=== PATIENT | male | born 1950 | race African-American/Black ===

== ENCOUNTER 2018-10-09 22:33 | Inpatient (IN) ==
[2018-10-09] MEDS ORDERED: M.V.I.-12 10 ML, FOLIC ACID 1 MG, MAGNESIUM SULFATE 1 GM, THIAMINE 100 MG in NS 1,000 ML IV ONE (22:43)
[2018-10-09] MEDS ORDERED: G.I. COCKTAIL PO ONE (22:48)
[2018-10-09 23:28] LABS: BASO# 0.03 X1000 (0.0-0.2); BASO% 0.4 % (0.0-0.8); EOS# 0.09 X1000 (0.0-0.7); EOS% 1.3 % (0.0-10.0); HEMATOCRIT 33.7 % (42.0-52.0); HEMOGLOBIN 11.7 g/dL (14.0-18.0); IMM GRAN# 0.02 X1000 (0.0-0.04); IMM GRAN% 0.3 % (0.0-0.5); LYMPH% 44.5 % (20.5-51.1); MCH 30.5 PG (27-31); MCHC 34.7 g/dL (33-37); MCV 87.8 FL (81-99); MONO# 0.99 X1000 (0.11-0.59); MONO% 13.8 % (1.7-9.3); MPV 9.1 FL (7.4-10.4); NEUT# 2.86 X1000 (1.4-6.5); NEUT% 39.7 % (42.2-75.2); PLT 261 X1000 (130-400); RBC 3.84 XMIL (4.7-6.1); RDW 13.8 % (11.5-14.5); WBC 7.19 X1000 (4.8-10.8)
[2018-10-09 23:31] LABS: AGAP 20; ALBUMIN 4.2 g/dL (3.5-5.0); ALKALINE PHOSPHATASE 104 U/L (32-122); BUN 6 mg/dL (8-22); CALCIUM 7.5 mg/dL (8.8-10.2); CHLORIDE 91 mmol/L (98-107); COSMO 264; CREATININE 0.7 mg/dL (0.7-1.2); ESTIMATED GFR > 60; GLUCOSE 161 mg/dL (70-104); GOT 42 U/L (10-34); GPT 17 U/L (10-44); LIPASE 59 U/L (13-60); POTASSIUM 3.1 mmol/L (3.5-5.1); SODIUM 131 mmol/L (136-145); TCO2 19 mmol/L (25-35); TOTAL PROTEIN 7.2 g/dL (6.3-8.3)
[2018-10-09 23:32] LABS: CK PROFILE 395 U/L (24-204)
[2018-10-09 23:46] LABS: CK INDEX 1.2 (0.0-2.5); CK-MB 4.81 ng/mL (0.0-5.0)
[2018-10-10 01:24] LABS: UR AMPHETAMINES QUAL NONE DETECTED (NONE DETECT); UR BARBITUATES QUAL NONE DETECTED (NONE DETECT); UR BENZODIAZEPIN QUAL NONE DETECTED (NONE DETECT); UR CANNABINOIDS QUAL NONE DETECTED (NONE DETECT); UR COCAINE QUAL NONE DETECTED (NONE DETECT); UR METHADONE QUAL NONE DETECTED (NONE DETECT); UR METHAMPHETAMINE QUAL NONE DETECTED (NONE DETECT); UR OPIATES QUAL NONE DETECTED (NONE DETECT); UR OXYCODONE QUAL NONE DETECTED (NONE DETECT); UR PCP QUAL NONE DETECTED (NONE DETECT); UR PROPOXYPHENE QUAL NONE DETECTED (NONE DETECT); UR TCA QUAL NONE DETECTED (NONE DETECT)
--- NOTE | 2018-10-10 01:53 | EKG Report ---
Test Performed on : 10/09/2018 10:58:08 PM Test Reason : chest pain Blood Pressure : / mmHG Vent. Rate : 088 BPM Atrial Rate : 088 BPM P-R Int : 154 ms QRS Dur : 072 ms QT Int : 416 ms P-R-T Axes : 083 074 073 degrees QTc Int : 503 ms Normal sinus rhythm. Prolonged QT Abnormal ECG No previous ECGs available Unconfirmed Result
[2018-10-10] MEDS ORDERED: NORCO-5 PO ONE (03:11)
[2018-10-10] MEDS ORDERED: DILAUDID IV ONE (04:26)
[2018-10-10] MEDS ORDERED: NS 1,000 ML IV ONE (05:30)
[2018-10-10] MEDS ORDERED: DILAUDID IM PRN (05:30)
--- NOTE | 2018-10-10 05:30 | PROVIDER DOCUMENTATION ---
This chart was entered by Tina Smith Scribe, acting as scribe for Jie Narayanan MD. [id number] Abuse/Overdose - General Chief Complaint: Fall Stated Complaint: fall Time Seen by Provider: 10/09/18 22:43 Source: patient Allergies/Adverse Reactions: Allergies Allergy/AdvReac Type Severity Reaction Status Date / Time morphine AdvReac DIZZINESS Verified 06/12/17 15:49 Home Medications: Home Medication List Medication Instructions Recorded Confirmed Last Taken Type Cyclobenzaprine [Flexeril] 10 mg PO TID #20 tab 06/12/17 Unknown Rx Ibuprofen [Motrin] 800 mg PO Q8H PRN PRN #20 tab 06/12/17 Unknown Rx Omeprazole 20 mg PO DAILY #20 tablet. 06/12/17 Unknown Rx - History of Present Illness-Drug/Alcohol Nature of Presenting Problem: Pt presents to ED w/ ETOH on board. Was in a standing position and fell down at home. Pt sts that he has been drinking all day. He has slurred speech and had soiled his pants at time of exam. Cannot accurately assess pt. at time arrival This episode of drinking or use began:: just prior to arrival Severity: reports: mild Situational problems related to:: reports: other Psychiatric Complaints: reports: denies symptoms Associated Symptoms: reports: other (slurred). denies: vomiting Any injuries associated with this episode of intoxication?: No Similar Symptoms Previously?: No Recently seen or treated by another doctor?: No - Alcohol Abuse Usually drinks:: unknown Other alcohols?: reports: N/A Review of Systems - Adult - REVIEW OF SYSTEMS - ADULT Constitutional: denies: fever, fatique Ears, Nose, Mouth & Throat: reports: no symptoms reported Cardiovascular: reports: chest pain Respiratory: reports: pleurisy Gastrointestinal: reports: no symptoms reported Genitourinary: reports: no symptoms reported Musculoskeletal: reports: no symptoms reported Integumentary: reports: no symptoms reported Neurological: reports: ataxia, headache/migraines Psychiatric: reports: no symptoms reported Endocrine: reports: no symptoms reported Hematologic/Lymphatic: reports: no symptoms reported Allergic/Immunologic: reports: no symptoms reported Past History - Adult - PAST MEDICAL HISTORY-ADULT Review of Records: reports: Nursing Assessment Review Major Childhood Illnesses: reports: denies history Cardiovascular: reports: denies history Respiratory: reports: denies history Gastrointestinal: reports: denies history Obstetrical/Gynecological: reports: denies history Genitourinary: reports: denies history Musculoskeletal: reports: denies history Neurological: reports: denies history Endocrine/Immune: reports: denies history Other Conditions: reports: denies history - PRIOR SURGERIES/PROCEDURES Surgical/Procedure History: reports: none - IMMUNIZATION STATUS Childhood Immunizations: See Nurse Assessment Flu Vaccine: See Nurse Assessment - FAMILY HISTORY Family History: reviewed, not pertinent Physical Exam-General - PHYSICAL EXAM-ADULT Initial Vital Signs Reviewed: Yes - CONSTITUTIONAL General Appearance: alert, other (intoxicated) - EYES Eyes: PERRL/EOMI - HEAD, EARS, NOSE, MOUTH & THROAT HENMT: normocephalic/atraumatic - NECK Neck: non-tender, supple - RESPIRATORY Respiratory: decreased rate (decreased breath sound on the right lung), other - CARDIOVASCULAR Cardiovascular: regular rate, rhythm, no edema, no gallop - GASTROINTESTINAL (ABDOMEN) Abdominal Exam: non tender, soft - LYMPHATIC Lymphatic: no adenopathy - MUSCULOSKELETAL Back Exam: no CVA tenderness, no vertebral tenderness Extremity: non-tender, no pedal edema - SKIN Integumentary: warm/dry - NEUROLOGIC Neurologic: grossly normal, no motor/sensory deficits - PSYCHIATRIC Psych/Mental Status: normal mood/affect Progress - PLAN OF CARE/RESULTS Progress/Plan/Lab Results: Vital Signs - 8 hr 10/09/18 22:43 10/10/18 00:00 10/10/18 04:53 Temperature 98.5 F Pulse Rate 84 77 74 Respiratory Rate 20 18 21 Blood Pressure 150/81 123/65 172/98 O2 Sat by Pulse Oximetry 94 L 96 Laboratory Results - last 24 hr 10/09/18 10/09/18 10/09/18 23:01 23:01 23:01 WBC 7.19 RBC 3.84 L Hgb 11.7 L Hct 33.7 L MCV 87.8 MCH 30.5 MCHC 34.7 RDW Std Deviation 13.8 Plt Count 261 MPV 9.1 Immature Gran % (Auto) 0.3 Neut % (Auto) 39.7 L Lymph % (Auto) 44.5 Hughes % (Auto) 13.8 H Eos % (Auto) 1.3 Baso % (Auto) 0.4 Immature Gran # (Auto) 0.02 Neut # (Auto) 2.86 Lymph # (Auto) 3.20 Hughes # (Auto) 0.99 H Eos # (Auto) 0.09 Baso # (Auto) 0.03 Sodium 131 L Potassium 3.1 L Chloride 91 L Carbon Dioxide 19 L Anion Gap 20 BUN 6 L Creatinine 0.7 Estimated GFR/1.73 m2 > 60 BUN/Creatinine Ratio 9 Glucose 161 H Calculated Osmolality 264 Calcium 7.5 L Total Bilirubin 0.20 AST 42 H ALT 17 Alkaline Phosphatase 104 Creatine Kinase 395 H Creatine Kinase Index 1.2 CK-MB (CK-2) 4.81 Troponin T < 0.010 Total Protein 7.2 Albumin 4.2 Globulin 3.0 Albumin/Globulin Ratio 1.0 Lipase 59 Urine Opiates Screen Ur Oxycodone Screen Urine Methadone Screen U Propoxyphene Qual Ur Barbituates Screen Ur Tricyclics Screen Ur Phencyclidine Scrn Ur Amphetamines Screen U Methamphetamines Scrn U Benzodiazepines Scrn Urine Cocaine Screen U Cannabinoids Screen Plasma/Serum Ethyl Alc 10/09/18 10/10/18 23:01 01:00 WBC RBC Hgb Hct MCV MCH MCHC RDW Std Deviation Plt Count MPV Immature Gran % (Auto) Neut % (Auto) Lymph % (Auto) Hughes % (Auto) Eos % (Auto) Baso % (Auto) Immature Gran # (Auto) Neut # (Auto) Lymph # (Auto) Hughes # (Auto) Eos # (Auto) Baso # (Auto) Sodium Potassium Chloride Carbon Dioxide Anion Gap BUN Creatinine Estimated GFR/1.73 m2 BUN/Creatinine Ratio Glucose Calculated Osmolality Calcium Total Bilirubin AST ALT Alkaline Phosphatase Creatine Kinase Creatine Kinase Index CK-MB (CK-2) Troponin T Total Protein Albumin Globulin Albumin/Globulin Ratio Lipase Urine Opiates Screen NONE DETECTED Ur Oxycodone Screen NONE DETECTED Urine Methadone Screen NONE DETECTED U Propoxyphene Qual NONE DETECTED Ur Barbituates Screen NONE DETECTED Ur Tricyclics Screen NONE DETECTED Ur Phencyclidine Scrn NONE DETECTED Ur Amphetamines Screen NONE DETECTED U Methamphetamines Scrn NONE DETECTED U Benzodiazepines Scrn NONE DETECTED Urine Cocaine Screen NONE DETECTED U Cannabinoids Screen NONE DETECTED Plasma/Serum Ethyl Alc 338 H Orders Category Date Time Status CHEST-PORTABLE [RAD] Stat Exams 10/10/18 04:[address] HEAD W/O CONTRAST [CT] Stat Exams 10/09/18 22:50 Taken RIBS UNILAT W/PA CHEST RIGHT [RAD] Stat Exams 10/10/18 03:11 Taken ALCOHOL BLOOD Stat Lab 10/09/18 23:01 Completed CBC WITH DIFF [HEME] Stat Lab 10/09/18 23:01 Completed CK PROFILE [SP CHEM] Stat Lab 10/09/18 23:01 Completed COMPREHENSIVE METABOLIC PANEL [CHEM] Stat Lab 10/09/18 23:01 Completed LIPASE [CHEM] Stat Lab 10/09/18 23:01 Completed TROPONIN T Stat Lab 10/09/18 23:01 Completed URINE DRUG SCREEN PL Stat Lab 10/09/18 23:04 Completed Hydrocodone/APAP 5 mg/325 mg [Kemmerer-5] Med 10/10/18 03:11 Discontinued 1 each PO NOW ONE Hydromorphone [Dilaudid] Med 10/10/18 04:26 Discontinued 1 mg IV NOW ONE Lido/Odonnell Alk/Al&mg Hydrox [G.i. Cocktail] Med 10/09/18 22:48 Discontinued 30 ml PO NOW ONE Mvi [M.v.i.-12] 10 ml Med 10/09/18 22:43 Discontinued Folic Acid 1 mg Magnesium Sulfate 1 gm Thiamine 100 mg 0.9% Sodium Chloride Inj [Ns] 1,000 ml IV NOW Chest Tube Tray Stat Oth 10/10/18 04:35 Active EKG [EKG] Stat Ther 10/09/18 22:48 Draft Result Diagrams: 10/09/18 23:01 10/09/18 23:01 - EKG 1 Time of EKG reading by physician:: 22:58 EKG Read and Signed by:: Jie Narayanan EKG Interpretation (*Must complete 3 of following elements*): Abnormal (normal sinus rhythm, Prolonged QT, Abnormal ECG) Rate: 86 Rhythm: normal sinus - XRAY 1 XRAY: Right XRAY Study: Chest Impression: See EMR Report (pneumothorax) 2 XRAY: Right XRAY Study: Chest (chest tube in good position, lungs expanded) - CT/MRI 1 CT Study: Head Impression: Normal (no accute intracranial hemorrhage or process, Age related cerbral volume loss, Bilateral white matter disease, likely ischemic microvascular in nature.) - CONSULTS/PCP/HOSPITALIST Notification #1 *Consult/PCP/Hospitalist*: Mckenzie Time Discussed: 05:02 Consult Disposition: Admit Departure - Departure Date of Disposition Decision: 10/10/18 Time of Disposition Decision: 05:27 DIAGNOSIS: Intoxication, Pneumothorax Disposition: ADMITTED INPATIENT 09 Certified Medical Emergency: Emergent Condition: Good Referrals and Follow-Ups: None,PCP [Primary Care Provider] - - Critical Care Note This patient required my direct & personal management of CC.: Yes Total Time (mins): 31 Critical Care Statement: This patient required my direct personal management to treat or rule out processes, the absence of which, could potentiallly result in sudden, clinically significant life or limb threatening deterioration. Attestation - Physician/ LALO Attestation Patient care was provided by Advanced Practice Provider:: No The physician spent face to face time with patient:: Yes Advanced Practice Provider documentation review:: Supervising physician onsite and consulted in the evaluation and care of this patient. The physician did have a face to face encounter with the patient. This chart was documented by the indicated scribe, (Tina Smith, Scribe) and accurately reflects the services I performed and decisions made by me, Jie Narayanan MD, as attested by the provider's signature.
[2018-10-10] MEDS ORDERED: ZOFRAN IV PRN (05:33)
[2018-10-10] MEDS ORDERED: NS 1,000 ML ONE (05:44)
[2018-10-10] MEDS: KEFZOL 1 GM/D5W 1 GM/50 ML IVPB IV SCH ×3 (05:45→22:18)
--- NOTE | 2018-10-10 07:31 | Diag Imaging Result Doc PS360 ---
EXAM: CHEST-PORTABLE HISTORY: right chest tube placement TECHNIQUE: Chest single view COMPARISON: 3:35 AM FINDINGS: A right-sided chest tube has been placed. Interval decrease in the size of the right pneumothorax. No other interval change. IMPRESSION: Decrease in the size of the right-sided pneumothorax following placement of the chest tube. Electronically signed by Rohan Vick 10/10/2018 7:29 AM
--- NOTE | 2018-10-10 07:33 | Diag Imaging Result Doc PS360 ---
EXAM: CT HEAD W/O CONTRAST HISTORY: fall, intoxicated, slurry TECHNIQUE: CT head without contrast COMPARISON: None. FINDINGS: No parenchymal hemorrhage. No epidural or subdural hematoma. No subarachnoid hemorrhage. There is atrophy with chronic microvascular ischemic changes. No mass identified on this noncontrasted exam. No hydrocephalus. No skull fracture prominent mucosal thickening in the left maxillary sinus with a small amount of mucus in the left ethmoid sinus. IMPRESSION: 1.No hemorrhage 2.Atrophy with chronic microvascular ischemic changes 3.Left-sided sinusitis A preliminary report was given at 11:32 PM on 10/09/2018 This exam was performed using automated exposure control, adjustment of mA or kV according to patient size, and/or use of iterative reconstruction technique. Electronically signed by Rohan Vick 10/10/2018 7:30 AM
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
[2018-10-10] MEDS ORDERED: DILAUDID IV PRN (08:42)
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
[2018-10-10] MEDS ORDERED: BENTYL PO PRN (11:31)
[2018-10-10] MEDS: LIBRIUM PO SCH ×2 (13:13→19:00)
[2018-10-10] MEDS: NS 1,000 ML IV SCH (17:30)
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
[2018-10-10 18:32] LABS: AGAP 14; ALBUMIN 3.8 g/dL (3.5-5.0); BUN 4 mg/dL (8-22); CHLORIDE 102 mmol/L (98-107); COSMO 269; CREATININE 0.5 mg/dL (0.7-1.2); ESTIMATED GFR > 60; GLUCOSE 99 mg/dL (70-104); PHOSPHORUS 2.2 mg/dL (2.7-4.5); POTASSIUM 3.9 mmol/L (3.5-5.1); SODIUM 136 mmol/L (136-145); TCO2 21 mmol/L (25-35)
[2018-10-10] MEDS: TUMS EXTRA STRENGTH PO SCH (22:17)
[2018-10-11] MEDS: LIBRIUM PO SCH ×4 (00:48→18:18)
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
[2018-10-11] MEDS: NS 1,000 ML IV SCH ×3 (05:28→13:12)
[2018-10-11] MEDS: KEFZOL 1 GM/D5W 1 GM/50 ML IVPB IV SCH ×3 (06:00→21:24)
[2018-10-11] MEDS: PRILOSEC PO SCH (06:00)
--- NOTE | 2018-10-11 07:05 | Diag Imaging Result Doc PS360 ---
CHEST-PORTABLE - 10/11/2018 INDICATION: pneumothorax COMPARISON: 10/10/2018 FINDINGS: Stable small right-sided chest tube. No pneumothorax. The lungs are clear. IMPRESSION: No acute disease or change from prior. Electronically signed by Beltran Alegria 10/11/2018 7:02 AM
[2018-10-11 07:06] LABS: HEMATOCRIT 31.8 % (42.0-52.0); HEMOGLOBIN 10.6 g/dL (14.0-18.0); MCH 30.5 PG (27-31); MCHC 33.3 g/dL (33-37); MCV 91.6 FL (81-99); MPV 9.6 FL (7.4-10.4); RBC 3.47 XMIL (4.7-6.1); RDW 14.5 % (11.5-14.5); WBC 7.62 X1000 (4.8-10.8)
[2018-10-11 07:31] LABS: AGAP 13; ALBUMIN 3.3 g/dL (3.5-5.0); ALKALINE PHOSPHATASE 98 U/L (32-122); BUN 3 mg/dL (8-22); CALCIUM 7.3 mg/dL (8.8-10.2); CHLORIDE 104 mmol/L (98-107); COSMO 277; CREATININE 0.6 mg/dL (0.7-1.2); ESTIMATED GFR > 60; GLUCOSE 88 mg/dL (70-104); GOT 28 U/L (10-34); GPT 12 U/L (10-44); POTASSIUM 3.3 mmol/L (3.5-5.1); SODIUM 141 mmol/L (136-145); TCO2 24 mmol/L (25-35); TOTAL PROTEIN 6.2 g/dL (6.3-8.3)
[2018-10-11] MEDS: DUONEB (A & A) INH PRN ×3 (08:09→19:20)
[2018-10-11] MEDS: TUMS EXTRA STRENGTH PO SCH ×2 (08:54→21:23)
[2018-10-11] MEDS: M.V.I.-12 10 ML, FOLIC ACID 1 MG, MAGNESIUM SULFATE 1 GM, THIAMINE 100 MG in NS 1,000 ML IV SCH (09:56)
--- NOTE | 2018-10-11 13:46 | CONSULTATION ---
DATE OF CONSULTATION: 10/11/2018 HISTORY OF PRESENT ILLNESS: Mr. Jose Armando Mchugh evidently had a fall and broke some ribs on the right and had a pneumothorax. A pneumothorax catheter was placed in the emergency department, and he has been transferred to the ICU at [place] and we were asked to evaluate him because of his chest tube. This morning's chest x-ray documents that his lung has re-expanded. His chest pneumothorax catheter is now to -20 cm of suction. He appears to be resting comfortably, and has no shortness of breath. We will get a chest x-ray in the morning. If his lung stays re-expanded, we will remove this pneumothorax catheter. cc: MD Oh Saul MD
--- NOTE | 2018-10-11 18:35 | PROGRESS NOTE ---
DATE: 10/11/2018 SUBJECTIVE: The patient has no complaints. States overall he is feeling better. Denies any chest pain, palpitations. Denies any shortness of breath. PHYSICAL EXAM: Vital Signs: Temperature 98.6, pulse 76, respiratory rate 18, BP 151/99. General: Patient is pleasant to talk with. He is in no current distress. HEENT: Normocephalic. Neck: Supple. CARDIOVASCULAR: Regular rate. No murmurs. Chest: Good air movement bilaterally. automatic lump making machine tender over the right side where his rib fractures are. Abdomen: Soft, nondistended. Extremities: Moves all extremities. ASSESSMENT: 1. Right-sided rib fractures. 2. Right-sided pneumothorax, improved. 3. Hypertension. 4. Alcohol intoxication in a patient with chronic alcohol abuse. 5. Rhabdomyolysis. 6. Chronic tobacco abuse. PLAN: Overall, the patient has improved. We will plan continue care today. If he improves, we will repeat a chest x-ray in the a.m. and hopefully pull his tube and allow him to discharge home. cc: Oh Lyn MD MTDD
[2018-10-11] MEDS: ROBAXIN PO PRN (21:23)
[2018-10-11] MEDS: ATARAX PO PRN (21:24)
[2018-10-11] MEDS: DILAUDID IV PRN (21:26)
[2018-10-12] MEDS: ATARAX PO PRN ×2 (03:39→16:58)
[2018-10-12] MEDS: DILAUDID IV PRN ×2 (03:39→14:56)
[2018-10-12] MEDS: LIBRIUM PO SCH ×4 (06:28→16:58)
[2018-10-12] MEDS: KEFZOL 1 GM/D5W 1 GM/50 ML IVPB IV SCH (06:28)
[2018-10-12] MEDS: PRILOSEC PO SCH (06:28)
[2018-10-12] MEDS: DUONEB (A & A) INH PRN ×3 (07:54→19:39)
[2018-10-12] MEDS: TUMS EXTRA STRENGTH PO SCH ×2 (08:30→20:16)
--- NOTE | 2018-10-12 08:30 | Diag Imaging Result Doc PS360 ---
CHEST-PORTABLE - 10/12/2018 INDICATION: R chest tube COMPARISON: 10/11/2018 FINDINGS: There is a stable small bore right chest tube. No pneumothorax. Stable faint atelectasis at the right lung base. This appears stable from prior. No new infiltrates. Heart size is normal. IMPRESSION: No change from prior. No pneumothorax. Electronically signed by Beltran Alegria 10/12/2018 8:28 AM
[2018-10-12] MEDS: M.V.I.-12 10 ML, FOLIC ACID 1 MG, MAGNESIUM SULFATE 1 GM, THIAMINE 100 MG in NS 1,000 ML IV SCH (09:07)
[2018-10-12] MEDS: NS 1,000 ML IV SCH ×2 (09:08→20:15)
[2018-10-12] MEDS ORDERED: TYLENOL PO PRN (16:23)
[2018-10-12] MEDS: ROBAXIN PO PRN (16:58)
--- NOTE | 2018-10-12 18:31 | PROGRESS NOTE ---
DATE: 10/12/2018 SUBJECTIVE: Patient currently has no complaints. States he is feeling okay. PHYSICAL EXAMINATION: Vital Signs: Reviewed. Temperature 98 degrees, pulse 76, respiratory rate 18, BP 151/99. General: Patient is awake. He is in no distress. He is pleasant to talk with. HEENT: Normocephalic. Neck: Supple. Cardiovascular: Regular rate. Chest: Clear, nonlabored. Abdomen: Soft, nondistended. Extremities: Moves all extremities. ASSESSMENT: 1. Nausea and vomiting, resolved. 2. Alcohol withdrawal, stable. 3. Right-sided pneumothorax, stable. Hopefully, Surgery will be able to remove his chest tube and discharge him today. 4. 8th rib fracture, causing the right-sided pain and pneumothorax. 5. Rhabdomyolysis, resolved. 6. Chronic tobacco abuse. PLAN: Overall, the patient is stable. If his chest tube is able to be removed today, he may be able to discharge home today. cc: Oh Lyn MD
--- NOTE | 2018-10-12 19:03 | PROGRESS NOTE ---
DATE: 10/12/2018 Mr. Mchugh' chest x-ray documented complete expansion of his right lung and we removed this and he has no evidence of air leak involving his right pneumothorax catheter. We removed it this evening and put a dressing over it. We will repeat a chest x-ray in the morning. cc: MD Oh Saul MD
[2018-10-12] MEDS: ATIVAN IV PRN ×2 (19:48→23:31)
[2018-10-12] MEDS: BENADRYL IV PRN ×2 (19:48→23:31)
[2018-10-13] MEDS: BENADRYL IV PRN ×2 (02:41→16:40)
[2018-10-13] MEDS: ATIVAN IV PRN ×4 (02:41→15:55)
[2018-10-13] MEDS: NS 1,000 ML IV SCH ×3 (03:58→14:31)
[2018-10-13] MEDS: DILAUDID IV PRN ×2 (03:58→22:19)
[2018-10-13] MEDS: PRILOSEC PO SCH (06:07)
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
[2018-10-13] MEDS: DUONEB (A & A) INH PRN ×2 (07:56→15:01)
[2018-10-13] MEDS: LIBRIUM PO SCH ×3 (08:43→16:40)
[2018-10-13] MEDS: TUMS EXTRA STRENGTH PO SCH ×2 (08:44→21:43)
[2018-10-13] MEDS: M.V.I.-12 10 ML, FOLIC ACID 1 MG, MAGNESIUM SULFATE 1 GM, THIAMINE 100 MG in NS 1,000 ML IV SCH (09:14)
[2018-10-13] MEDS ORDERED: ATIVAN IV PRN (09:33)
[2018-10-13 09:50] LABS: BASO# 0.04 X1000 (0.0-0.2); BASO% 0.7 % (0.0-0.8); EOS# 0.15 X1000 (0.0-0.7); EOS% 2.7 % (0.0-10.0); HEMATOCRIT 31.3 % (42.0-52.0); HEMOGLOBIN 10.7 g/dL (14.0-18.0); IMM GRAN# 0.01 X1000 (0.0-0.04); IMM GRAN% 0.2 % (0.0-0.5); LYMPH# 1.61 X1000 (1.2-3.4); LYMPH% 28.7 % (20.5-51.1); MCH 30.4 PG (27-31); MCHC 34.2 g/dL (33-37); MCV 88.9 FL (81-99); MONO# 0.58 X1000 (0.11-0.59); MONO% 10.3 % (1.7-9.3); MPV 9.3 FL (7.4-10.4); NEUT# 3.22 X1000 (1.4-6.5); NEUT% 57.4 % (42.2-75.2); PLT 237 X1000 (130-400); RBC 3.52 XMIL (4.7-6.1); WBC 5.61 X1000 (4.8-10.8)
[2018-10-13 10:04] LABS: AGAP 13; ALBUMIN 3.2 g/dL (3.5-5.0); ALKALINE PHOSPHATASE 79 U/L (32-122); BUN 2 mg/dL (8-22); CALCIUM 7.5 mg/dL (8.8-10.2); CHLORIDE 102 mmol/L (98-107); COSMO 281; CREATININE 0.5 mg/dL (0.7-1.2); ESTIMATED GFR > 60; GLUCOSE 93 mg/dL (70-104); GOT 22 U/L (10-34); GPT 8 U/L (10-44); POTASSIUM 2.9 mmol/L (3.5-5.1); SODIUM 143 mmol/L (136-145); TCO2 28 mmol/L (25-35); TOTAL PROTEIN 6.2 g/dL (6.3-8.3)
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
[2018-10-13] MEDS: NORVASC PO SCH ×2 (10:27→21:43)
[2018-10-13] MEDS: ZITHROMAX 500 MG/NS 500 MG/250 ML IVPB IV SCH (10:34)
[2018-10-13] MEDS ORDERED: POTASSIUM CHLORIDE 60 MEQ in NS 500 ML IV ONE (11:00)
--- NOTE | 2018-10-13 11:00 | PROGRESS NOTE ---
DATE: 10/13/2018 SUBJECTIVE: According to nursing staff, the patient has been more confused and agitated. Currently he is on physical restraints. OBJECTIVE: Vital Signs: Temperature 98.4 degrees, heart rate 64, respiratory rate 19, blood pressure 192/86, O2 saturation 100% on 2 L nasal cannula. General: This is a chronically ill- appearing, 68-year-old male, lying in bed, in no acute distress. HEENT: Head is normocephalic, atraumatic. Mucous membranes dry. Neck: No JVD noted. No carotid bruits. No lymphadenopathy. No thyromegaly. Cardiovascular: S1, S2 heard. No murmurs, gallops or rubs. Regular rate and rhythm. Respiratory: Clear bilaterally to auscultation. No work of breathing or using accessory muscles. Abdomen: Soft, nontender to palpation. Bowel sounds present. No organomegaly. Extremities: No clubbing, cyanosis, or edema. Peripheral pulses present in both legs. Neurological: Patient is alert and oriented x3. Moves 4 extremities. LABORATORY DATA: No laboratories from today. ASSESSMENT AND PLAN: 1. Right-sided pneumothorax. Dr. Edward from General Surgery has been consulted. He decided to remove the chest tube. The x-ray from this morning showed worsening atelectasis versus infiltrate in the right lower lung. In that regard, and to have a better visualization of the lung anatomy, we have ordered a CT of the thorax without contrast. There are labs from this morning that show a white cell count within normal limits 5.61, so at this point until we do have the result of the CT of the chest, we are going to start IV antibiotics. In this case, it will be ceftriaxone 2 g IV q.24 hours and also azithromycin IV as well. We will continue to monitor CBC daily. 2. Alcohol withdrawal. Upon my examination, this patient looks to be on full-blown alcohol withdrawal. The patient is confused. Heart rate is elevated. Blood pressure is also elevated. At this time, I have changed the frequency of Ativan to 1 to 2 g mg IV q.1 hour p.r.n. for agitation. I have added baclofen to his current treatment and I do not know if he is going to be able to take medications by mouth. We will continue to monitor this patient in the intensive care unit. 3. Hypokalemia. We are going to replete potassium today. 4. 8th rib fracture causing right-sided pain and pneumothorax, aware. That has resolved. 5. Chronic tobacco abuse. Aware. 6. Disposition, we will continue to monitor this patient in the ICU for alcohol withdrawal. cc: MD Oh Salvador MD
[2018-10-13] MEDS: ROCEPHIN 2 GM in NS 50 ML IV SCH (12:24)
[2018-10-13] MEDS: LIORESAL PO SCH ×2 (13:25→16:40)
[2018-10-13 18:17] LABS: AGAP 14; BUN 3 mg/dL (8-22); CALCIUM 7.7 mg/dL (8.8-10.2); CHLORIDE 105 mmol/L (98-107); COSMO 278; CREATININE 0.5 mg/dL (0.7-1.2); ESTIMATED GFR > 60; GLUCOSE 131 mg/dL (70-104); POTASSIUM 4.1 mmol/L (3.5-5.1); SODIUM 140 mmol/L (136-145); TCO2 21 mmol/L (25-35)
[2018-10-14] MEDS: NS 1,000 ML IV SCH ×3 (00:15→21:20)
[2018-10-14] MEDS: PRILOSEC PO SCH (06:18)
[2018-10-14 07:29] LABS: BASO# 0.02 X1000 (0.0-0.2); BASO% 0.4 % (0.0-0.8); EOS# 0.21 X1000 (0.0-0.7); EOS% 4.1 % (0.0-10.0); HEMATOCRIT 32.1 % (42.0-52.0); HEMOGLOBIN 10.7 g/dL (14.0-18.0); LYMPH# 1.55 X1000 (1.2-3.4); MCH 29.6 PG (27-31); MCHC 33.3 g/dL (33-37); MCV 88.9 FL (81-99); MONO# 0.54 X1000 (0.11-0.59); MONO% 10.5 % (1.7-9.3); MPV 8.9 FL (7.4-10.4); NEUT# 2.84 X1000 (1.4-6.5); PLT 324 X1000 (130-400); RBC 3.61 XMIL (4.7-6.1); RDW 13.9 % (11.5-14.5); WBC 5.16 X1000 (4.8-10.8)
[2018-10-14 07:49] LABS: AGAP 12; ALBUMIN 3.4 g/dL (3.5-5.0); ALKALINE PHOSPHATASE 85 U/L (32-122); BUN 2 mg/dL (8-22); CALCIUM 8.2 mg/dL (8.8-10.2); CHLORIDE 101 mmol/L (98-107); COSMO 277; CREATININE 0.5 mg/dL (0.7-1.2); ESTIMATED GFR > 60; GLUCOSE 94 mg/dL (70-104); GOT 21 U/L (10-34); GPT 9 U/L (10-44); PHOSPHORUS 2.6 mg/dL (2.7-4.5); POTASSIUM 3.2 mmol/L (3.5-5.1); SODIUM 141 mmol/L (136-145); TCO2 27 mmol/L (25-35); TOTAL PROTEIN 6.6 g/dL (6.3-8.3)
[2018-10-14] MEDS: BEER PO PRN (08:21)
[2018-10-14] MEDS: TUMS EXTRA STRENGTH PO SCH ×2 (08:24→21:20)
[2018-10-14] MEDS: PRINIVIL PO SCH ×2 (08:24→21:20)
[2018-10-14] MEDS: NORVASC PO SCH ×2 (08:25→21:20)
[2018-10-14] MEDS: LIBRIUM PO SCH (08:27)
[2018-10-14] MEDS: LIORESAL PO SCH ×3 (08:33→18:06)
[2018-10-14] MEDS: THIAMINE 100 MG in NS 50 ML IV SCH (08:34)
[2018-10-14] MEDS: DUONEB (A & A) INH PRN (08:44)
[2018-10-14] MEDS: LABETALOL IV PRN (09:11)
--- NOTE | 2018-10-14 11:22 | PROGRESS NOTE ---
DATE: 10/14/2018 SUBJECTIVE: The patient is still confused although more awake in comparing with yesterday. OBJECTIVE: Vitals: Temperature 98.4 degrees, heart rate 74, respiratory rate 14, blood pressure 196/86. O2 saturation 100% on 2 L nasal cannula. General. This is a chronically ill appearing, 68-year-old male, lying in bed, in no acute distress. Cardiovascular: S1, S2 heard. No murmurs, gallops, or rubs. Regular rate and rhythm. Respiratory: Clear bilaterally to auscultation. No work of breathing or using accessory muscles. Abdomen: Soft, nontender to palpation. Bowel sounds present. No organomegaly. Extremities: No clubbing, cyanosis, or edema. Peripheral pulses present in both legs. Neurological: The patient is confused; a little bit lethargic but better in comparing with yesterday. LABORATORY DATA: White cell count 5.6, hemoglobin 10.7, hematocrit 32.1, platelets 324,000 with potassium 3.2 and phosphorus 2.6. ASSESSMENT AND PLAN: 1. Right-sided pneumothorax. That condition is resolved. Chest tube that this patient had has been removed 2 days ago. 2. Alcohol withdrawal. Patient in is having this condition since yesterday. The patient has been on Ativan p.r.n. I think considering that this patient is a long-term alcoholic, we will provide some beers and see if that can help with his withdrawal. 3. Hypokalemia. We are going to repeat potassium today. 4. Eight refractured causing right-sided pain pneumothorax, aware. 5. Chronic tobacco abuse, aware. 6. Uncontrolled hypertension. Mostly related to alcohol withdrawal. Will continue with Amlodipine and Lisinopril both medications bid. DISPOSITION: We will continue to monitor this patient in the intensive care unit. We will provide beers to see if that helps with alcohol withdrawal. If that condition resolves, patient can be discharged home. cc: MD Oh Salvador MD MTDD
[2018-10-14] MEDS: ZITHROMAX 500 MG/NS 500 MG/250 ML IVPB IV SCH (11:31)
[2018-10-14] MEDS: ROCEPHIN 2 GM in NS 50 ML IV SCH (11:42)
[2018-10-14] MEDS ORDERED: SODIUM PHOSPHATE 35 MMOL in NS 250 ML IV ONE (12:00)
[2018-10-14] MEDS ORDERED: KLOR-CON PO ONE (12:00)
[2018-10-15] MEDS: ATIVAN IV PRN ×2 (02:47→23:25)
[2018-10-15] MEDS: BENADRYL IV PRN (02:47)
[2018-10-15] MEDS: PRILOSEC PO SCH (06:25)
[2018-10-15] MEDS ORDERED: BLISTEX MEDICATED BERRY LIP BALM TOP ONE (06:26)
[2018-10-15] MEDS: NS 1,000 ML IV SCH ×2 (06:28→19:10)
[2018-10-15 06:56] LABS: BASO# 0.05 X1000 (0.0-0.2); BASO% 0.9 % (0.0-0.8); EOS# 0.14 X1000 (0.0-0.7); EOS% 2.5 % (0.0-10.0); HEMATOCRIT 33.3 % (42.0-52.0); LYMPH# 1.46 X1000 (1.2-3.4); LYMPH% 26.5 % (20.5-51.1); MCH 29.5 PG (27-31); MCV 89.3 FL (81-99); MONO# 0.75 X1000 (0.11-0.59); MONO% 13.6 % (1.7-9.3); MPV 9.3 FL (7.4-10.4); NEUT# 3.11 X1000 (1.4-6.5); NEUT% 56.5 % (42.2-75.2); PLT 352 X1000 (130-400); RBC 3.73 XMIL (4.7-6.1); RDW 14.4 % (11.5-14.5); WBC 5.51 X1000 (4.8-10.8)
[2018-10-15 07:46] LABS: AGAP 12; ALBUMIN 3.2 g/dL (3.5-5.0); ALKALINE PHOSPHATASE 80 U/L (32-122); BUN 3 mg/dL (8-22); CALCIUM 8.3 mg/dL (8.8-10.2); CHLORIDE 106 mmol/L (98-107); COSMO 282; CREATININE 0.6 mg/dL (0.7-1.2); ESTIMATED GFR > 60; GLUCOSE 82 mg/dL (70-104); GOT 20 U/L (10-34); GPT 7 U/L (10-44); PHOSPHORUS 2.9 mg/dL (2.7-4.5); POTASSIUM 3.5 mmol/L (3.5-5.1); SODIUM 144 mmol/L (136-145); TCO2 26 mmol/L (25-35); TOTAL PROTEIN 6.2 g/dL (6.3-8.3)
[2018-10-15] MEDS: DUONEB (A & A) INH PRN ×3 (08:26→20:22)
[2018-10-15] MEDS: TUMS EXTRA STRENGTH PO SCH ×2 (10:05→20:45)
[2018-10-15] MEDS: PRINIVIL PO SCH ×2 (10:05→20:45)
[2018-10-15] MEDS: NORVASC PO SCH ×2 (10:05→20:45)
[2018-10-15] MEDS: BEER PO PRN ×2 (10:11→15:55)
--- NOTE | 2018-10-15 10:16 | PROGRESS NOTE ---
DATE: 10/15/2018 SUBJECTIVE: After the patient received 1 dose of baclofen yesterday, he was sleeping all day, and at night he has been very restless. He requires Ativan. Last dose was given around 2:-00 a.m. yesterday. OBJECTIVE: Vital Signs: Temperature 99.6 degrees, heart rate 100, respiratory rate 27, blood pressure 141/79, O2 saturation 100% 2 L nasal cannula. General: This is a chronically ill- appearing, 68-year-old male, lying in bed, in no acute distress. Cardiovascular: S1, S2 heard. No murmurs, gallops, or rubs. Regular rate and rhythm. Respiratory: Clear bilaterally to auscultation. No work of breathing or using accessory muscles. Abdomen: Soft, nontender to palpation. Bowel sounds present. No organomegaly. Extremities: No clubbing, cyanosis, or edema. Peripheral pulses present in both legs. Neurological: Patient is still confused. Continues to be lethargic. He does not follow simple commands. LABORATORY DATA: CBC is within normal limits. BMP is okay. ASSESSMENT AND PLAN: 1. Alcohol withdrawal. Patient started having this condition for the last 2 days. We had provided Baclofen yesterday and he was sleepy during most of the day , but at night he was very restless. In that regard, he was provided Ativan. The plan for him is to continue to provide beer whenever he is more awake. I am going to provide 1 dose of Geodon 20 mg IM at night, scheduled to avoid any agitation overnight. Will stop Baclofen and Librium. 2. Hypokalemia, resolved. 3. Hypophosphatemia resolved. 4. Right-sided pneumothorax resolved. 5. Chronic tobacco abuse. Aware. 6. Uncontrolled hypertension. Blood pressure is definitely much better controlled. Currently, she is receiving amlodipine 5 mg p.o. b.i.d. and also lisinopril 10 mg p.o. b.i.d. we will continue with same management. 7. Physical deconditioning. I think after this patient is done with alcohol withdrawal he will become very weak so he will need to be sent to rehab facility. organic lab worker has been consulted. cc: Bakari Marshall MD [facility]
[2018-10-15] MEDS: THIAMINE 100 MG in NS 50 ML IV SCH (10:18)
[2018-10-15] MEDS: ROCEPHIN 2 GM in NS 50 ML IV SCH (12:21)
[2018-10-15] MEDS: LABETALOL IV PRN (15:54)
[2018-10-15] MEDS ORDERED: STERILE WATER INJ. ONE (20:35)
[2018-10-15] MEDS: GEODON IM SCH (20:45)
[2018-10-16] MEDS: BENADRYL IV PRN ×3 (01:04→20:46)
[2018-10-16] MEDS: ATIVAN IV PRN ×2 (04:16→20:46)
[2018-10-16] MEDS: NS 1,000 ML IV SCH ×3 (04:17→17:04)
[2018-10-16 06:12] LABS: BASO# 0.07 X1000 (0.0-0.2); BASO% 1.1 % (0.0-0.8); EOS# 0.12 X1000 (0.0-0.7); EOS% 1.9 % (0.0-10.0); HEMATOCRIT 36.7 % (42.0-52.0); HEMOGLOBIN 12.2 g/dL (14.0-18.0); IMM GRAN# 0.02 X1000 (0.0-0.04); IMM GRAN% 0.3 % (0.0-0.5); LYMPH# 1.48 X1000 (1.2-3.4); LYMPH% 23.1 % (20.5-51.1); MCH 29.6 PG (27-31); MCHC 33.2 g/dL (33-37); MCV 89.1 FL (81-99); MONO# 0.77 X1000 (0.11-0.59); MPV 9.3 FL (7.4-10.4); NEUT# 3.96 X1000 (1.4-6.5); NEUT% 61.6 % (42.2-75.2); PLT 393 X1000 (130-400); RBC 4.12 XMIL (4.7-6.1); RDW 14.1 % (11.5-14.5); WBC 6.42 X1000 (4.8-10.8)
[2018-10-16 06:25] LABS: AGAP 16; ALBUMIN 3.5 g/dL (3.5-5.0); ALKALINE PHOSPHATASE 89 U/L (32-122); BUN 2 mg/dL (8-22); CALCIUM 8.6 mg/dL (8.8-10.2); CHLORIDE 102 mmol/L (98-107); COSMO 276; CREATININE 0.4 mg/dL (0.7-1.2); ESTIMATED GFR > 60; GLUCOSE 107 mg/dL (70-104); GOT 22 U/L (10-34); GPT 8 U/L (10-44); PHOSPHORUS 2.9 mg/dL (2.7-4.5); POTASSIUM 3.6 mmol/L (3.5-5.1); SODIUM 140 mmol/L (136-145); TCO2 23 mmol/L (25-35); TOTAL PROTEIN 7.4 g/dL (6.3-8.3)
[2018-10-16] MEDS: PRILOSEC PO SCH (06:36)
[2018-10-16] MEDS: DUONEB (A & A) INH PRN ×4 (08:16→22:35)
[2018-10-16] MEDS: THIAMINE 100 MG in NS 50 ML IV SCH (09:36)
[2018-10-16] MEDS: NORVASC PO SCH ×2 (09:38→20:47)
[2018-10-16] MEDS: TUMS EXTRA STRENGTH PO SCH ×2 (09:38→20:47)
[2018-10-16] MEDS: PRINIVIL PO SCH ×2 (09:38→20:47)
--- NOTE | 2018-10-16 09:56 | PROGRESS NOTE ---
DATE: 10/16/2018 SUBJECTIVE: Patient continues to be confused and somewhat fidgety last night. Upon my examination this morning, he was more confused than yesterday. OBJECTIVE: Vital Signs: Temperature 98.0 degrees, heart rate 110, respiratory rate 18, blood pressure 175/94, O2 saturation 100% on 4 L nasal cannula. General examination: This is a chronically ill-appearing and disheveled, 68-year-old male, lying in bed in no acute distress. Cardiovascular exam: S1, S2 heard. No murmurs, gallops, or rubs. Regular rate and rhythm. Respiratory exam: Clear bilaterally to auscultation. No work of breathing or using accessory muscles. Abdomen: Soft, nontender to palpation. Bowel sounds present. No organomegaly. Extremities: No clubbing, cyanosis, or edema. Peripheral pulses present in both legs. Neurological exam: Patient continues to be confused. Does not follow any commands. He is still lethargic. LABORATORY DATA: Reviewed. ASSESSMENT AND PLAN: 1. Alcohol withdrawal. Patient continues to be on alcohol withdrawal, even though he is receiving beer. At this point, we will continue with the same management. Will start Clinimix and lipids for nutrition. Even though he received Geodon last night, he was agitated. We will continue with Geodon now. 2. Hypokalemia, resolved. 3. Hypophosphatemia, resolved. 4. Right-sided pneumothorax, resolved. 5. Uncontrolled hypertension. During the last 24 hours, blood pressure has been okay, but the blood pressure started getting higher again. I think at this point we are going to watch him in the next 24 hours. Will add amlodipine 5 mg oral twice daily, plus lisinopril 10 mg oral twice daily as well. 6. Physical deconditioning. Of course, patient is not able to work with any physical therapy at this time. We will continue to monitor. 7. Disposition: We will continue to keep this patient here in the intensive care unit. cc: Bakari Marshall MD
[2018-10-16] MEDS: ROCEPHIN 2 GM in NS 50 ML IV SCH (12:00)
[2018-10-16] MEDS: BEER PO PRN (19:42)
[2018-10-16] MEDS ORDERED: STERILE WATER INJ. ONE (20:16)
[2018-10-16] MEDS: GEODON IM SCH (20:46)
[2018-10-17] MEDS: NS 1,000 ML IV SCH ×4 (00:32→20:18)
[2018-10-17 06:03] LABS: BASO# 0.06 X1000 (0.0-0.2); BASO% 0.7 % (0.0-0.8); EOS# 0.17 X1000 (0.0-0.7); EOS% 2.1 % (0.0-10.0); HEMATOCRIT 33.6 % (42.0-52.0); HEMOGLOBIN 11.1 g/dL (14.0-18.0); IMM GRAN# 0.02 X1000 (0.0-0.04); IMM GRAN% 0.2 % (0.0-0.5); LYMPH# 1.73 X1000 (1.2-3.4); LYMPH% 20.9 % (20.5-51.1); MCH 29.5 PG (27-31); MCV 89.4 FL (81-99); MONO# 1.26 X1000 (0.11-0.59); MONO% 15.2 % (1.7-9.3); MPV 8.9 FL (7.4-10.4); NEUT# 5.04 X1000 (1.4-6.5); NEUT% 60.9 % (42.2-75.2); PLT 438 X1000 (130-400); RBC 3.76 XMIL (4.7-6.1); RDW 14.4 % (11.5-14.5); WBC 8.28 X1000 (4.8-10.8)
[2018-10-17] MEDS: PRILOSEC PO SCH (06:28)
--- NOTE | 2018-10-17 08:26 | PROGRESS NOTE ---
DATE: 10/17/2018 SUBJECTIVE: The patient has been fidgety. Last night he has pulled out partially his Hernandez catheter. Now, the urine bag has bloody urine. He is still confused and not really answering any questions. OBJECTIVE: Vital signs: Temperature 98.6 degrees, heart rate 114, respiratory 17, blood pressure 131/82, O2 saturation 100% on 2 L nasal cannula. General: This is a chronically ill-appearing, disheveled, 68-year-old male, lying in bed, in no acute distress. Cardiovascular: S1, S2 heard. Tachycardic but no murmurs, gallops, or rubs noted. Respiratory: Clear bilaterally to auscultation. No work of breathing or using accessory muscles. Abdomen: Soft, nontender to palpation. Bowel sounds present. No organomegaly. Extremities: No clubbing, cyanosis, or edema. Peripheral pulses present in both legs. Neurological: Patient continues to be confused, lethargic. Does not follow commands. LABORATORY DATA: Reviewed. ASSESSMENT AND PLAN: 1. Alcohol withdrawal. This condition continues to be basically the same. He is not able to drink too much beer. The patient continues to be on Clinimix and lipids for nutrition. He received Geodon and Ativan last night and he has been calmed down all night long. At this point, we will continue with same management. 2. Hypokalemia, resolved. 3. Hypophosphatemia, resolved. 4. Right-sided pneumothorax, resolved. 5. Uncontrolled hypertension. Blood pressure is under control. We will continue with the same management. 6. Physical deconditioning. The patient has been working with Physical Therapy yesterday, sitting in the chair. We will continue with the same management. 7. Disposition. We will continue with the same management. cc: Bakari Marshall MD MTDD
[2018-10-17] MEDS: NORVASC PO SCH ×2 (08:49→20:08)
[2018-10-17] MEDS: TUMS EXTRA STRENGTH PO SCH ×2 (08:49→20:17)
[2018-10-17] MEDS: PRINIVIL PO SCH ×2 (08:49→20:08)
[2018-10-17] MEDS: THIAMINE 100 MG in NS 50 ML IV SCH (08:49)
[2018-10-17] MEDS: MUCOMYST 20% INH SCH ×2 (08:59→19:21)
[2018-10-17] MEDS: DUONEB (A & A) INH SCH ×5 (08:59→22:42)
[2018-10-17] MEDS: ROCEPHIN 2 GM in NS 50 ML IV SCH (12:31)
[2018-10-17] MEDS: GEODON IM SCH (20:05)
[2018-10-17] MEDS ORDERED: STERILE WATER INJ. ONE (22:40)
[2018-10-17] MEDS: BEER PO PRN (23:45)
[2018-10-18] MEDS: DUONEB (A & A) INH SCH ×5 (03:11→19:44)
[2018-10-18] MEDS: BEER PO PRN (05:00)
[2018-10-18] MEDS: NICODERM PATCH TD PRN (05:05)
[2018-10-18] MEDS: NS 1,000 ML IV SCH ×2 (05:06→18:47)
[2018-10-18] MEDS: PRILOSEC PO SCH (06:21)
[2018-10-18 07:20] LABS: BASO# 0.09 X1000 (0.0-0.2); BASO% 1.5 % (0.0-0.8); EOS# 0.25 X1000 (0.0-0.7); EOS% 4.3 % (0.0-10.0); HEMOGLOBIN 10.3 g/dL (14.0-18.0); IMM GRAN# 0.01 X1000 (0.0-0.04); IMM GRAN% 0.2 % (0.0-0.5); LYMPH# 1.85 X1000 (1.2-3.4); LYMPH% 31.8 % (20.5-51.1); MCHC 32.2 g/dL (33-37); MCV 90.1 FL (81-99); MONO# 0.79 X1000 (0.11-0.59); MONO% 13.6 % (1.7-9.3); MPV 8.9 FL (7.4-10.4); NEUT# 2.82 X1000 (1.4-6.5); NEUT% 48.6 % (42.2-75.2); PLT 470 X1000 (130-400); RBC 3.55 XMIL (4.7-6.1); RDW 14.1 % (11.5-14.5); WBC 5.81 X1000 (4.8-10.8)
[2018-10-18] MEDS: MUCOMYST 20% INH SCH ×2 (08:08→19:44)
[2018-10-18] MEDS: PRINIVIL PO SCH ×2 (08:40→21:07)
[2018-10-18] MEDS: TUMS EXTRA STRENGTH PO SCH ×2 (08:40→21:10)
[2018-10-18] MEDS: NORVASC PO SCH ×2 (08:40→21:07)
[2018-10-18] MEDS: THIAMINE 100 MG in NS 50 ML IV SCH (08:41)
--- NOTE | 2018-10-18 09:25 | PROGRESS NOTE ---
DATE: 10/18/2018 SUBJECTIVE: The patient has been more calmed down yesterday. He has been given beer at 9 and he was so calm that he did not need any Geodon and upon my examination this morning, he reports that he is feeling better. He is definitely much more awake and alert today although somehow disoriented in place. OBJECTIVE: Vital Signs: Temperature 98.8 degrees, heart rate 76, respiratory rate 13, blood pressure 144/69, O2 saturation 100% on room air. General: This is a chronically ill appearing, disheveled, 68-year-old male, lying in bed, in no acute distress. Cardiovascular: S1, S2 heard. No murmurs, gallops, or rubs. Regular rate and rhythm. Respiratory: Clear bilaterally to auscultation. No work of breathing or using accessory muscles. Abdomen: Soft, nontender to palpation. Bowel sounds present. No organomegaly. Extremities: No clubbing, cyanosis, or edema. Peripheral pulses present in both legs. Neurological: The patient is definitely more awake, alert. Disoriented in placed. Follows basic commands. LABORATORY DATA: Reviewed. ASSESSMENT AND PLAN: 1. Alcohol withdrawal. That condition is definitely getting much better. We have discontinued lipids and Clinimix because he is able to eat by himself. He is on Ativan p.r.n. but he has not used anything during the last 12 hours. We will continue to monitor this patient closely, and he can be transferred out of the intensive care unit today. He has been out of restraints for also 24 hours. 2. Hypokalemia, resolved. 3. Hypophosphatemia, resolved. 4. Right-sided pneumothorax, resolved. 5. Uncontrolled hypertension. Blood pressure continues to be under control. We will continue with the same management. 6. Physical deconditioning. Physical Therapy is working with this patient. He had been sitting in the chair for more than 8 hours yesterday. Definitely he needs to go to rehab. dope maintenance worker is aware of that. 7. Disposition. Patient is going to be transferred out of the intensive care unit today. cc: Bakari Marshall MD
[2018-10-18] MEDS: ROCEPHIN 2 GM in NS 50 ML IV SCH (13:28)
[2018-10-18] MEDS ORDERED: STERILE WATER INJ. ONE ×2 (16:33→20:59)
[2018-10-18] MEDS: GEODON IM SCH (23:01)
[2018-10-19] MEDS: DUONEB (A & A) INH SCH ×7 (00:05→23:16)
[2018-10-19] MEDS: NS 1,000 ML IV SCH ×4 (00:38→21:46)
[2018-10-19] MEDS: ATIVAN IV PRN ×3 (00:53→14:24)
[2018-10-19] MEDS: PRILOSEC PO SCH (07:16)
[2018-10-19 07:41] LABS: BASO# 0.07 X1000 (0.0-0.2); BASO% 1.2 % (0.0-0.8); EOS# 0.15 X1000 (0.0-0.7); EOS% 2.5 % (0.0-10.0); HEMOGLOBIN 11.1 g/dL (14.0-18.0); IMM GRAN# 0.02 X1000 (0.0-0.04); IMM GRAN% 0.3 % (0.0-0.5); LYMPH# 1.54 X1000 (1.2-3.4); MCH 28.8 PG (27-31); MCHC 32.6 g/dL (33-37); MCV 88.3 FL (81-99); MONO# 0.81 X1000 (0.11-0.59); MONO% 13.7 % (1.7-9.3); NEUT# 3.34 X1000 (1.4-6.5); NEUT% 56.3 % (42.2-75.2); PLT 589 X1000 (130-400); RBC 3.85 XMIL (4.7-6.1); RDW 13.7 % (11.5-14.5); WBC 5.93 X1000 (4.8-10.8)
[2018-10-19] MEDS: MUCOMYST 20% INH SCH ×2 (07:51→19:32)
[2018-10-19] MEDS: TUMS EXTRA STRENGTH PO SCH ×2 (09:07→21:34)
[2018-10-19] MEDS: NORVASC PO SCH ×2 (09:07→21:34)
[2018-10-19] MEDS: THIAMINE 100 MG in NS 50 ML IV SCH (09:07)
[2018-10-19] MEDS: PRINIVIL PO SCH ×2 (09:07→21:34)
--- NOTE | 2018-10-19 10:45 | PROGRESS NOTE ---
DATE: 10/19/2018 SUBJECTIVE: As per nursing staff, he had been a little bit restless last night so he got Geodon that is being given as scheduled at 11:30 pm and also Ativan 2 mg IV. Upon my examination this morning, he was sleepy. I was called around 10 a.m. because this patient had became more restless and combative. He is disoriented in place and time. OBJECTIVE: Vital Signs: Temperature 97.9 degrees, heart rate 90, respiratory rate 16, blood pressure 112/80, O2 saturation 97% on room air. General Examination: This is a chronically ill- appearing, 68-year-old, male, lying in bed, in no acute distress. Cardiovascular Examination: S1 and S2 heard. Tachycardic. No murmurs, gallops, or rubs noted. Respiratory Examination: Clear bilaterally to auscultation. No work of breathing or using accessory muscles. Abdomen: Soft. A little bit distended but nontender to palpation. Bowel sounds present. No organomegaly. Extremities: No clubbing, cyanosis, or edema. Peripheral pulses present in both legs. Neurological Examination: The patient is definitely more confused, combative, disoriented in place. Followed basic commands. Laboratory Data: White cell count 5.93, hemoglobin 11.1, hematocrit 34.0, platelets 589,000. We have no BMP from today. ASSESSMENT AND PLAN: 1. Alcohol withdrawal. Apparently, this condition was getting better during the last couple days. Actually, this condition started happening after he had his right- sided pneumothorax resolved. He started showing signs of alcohol withdrawal since last Saturday. He has been on Ativan, Geodon, Clinimix, and lipids. He was improving some during the last 2 days so he was transferred to a regular room but today, apparently, he started having signs of overt alcohol withdrawal. The patient is on Ativan as needed. We are going to continue providing this medication. We will monitor this patient closely. 2. Right-sided pneumothorax. Patient, at admission, had a fall with a refracture that produced this condition. General surgery was consulted and this condition is not definitely resolved. 3. Hypokalemia, resolved. 4. Hypophosphatemia, resolved. 5. Physical deconditioning. The patient has been stable to work with physical therapy the last couple of days but I do not think he is today. 6. Uncontrolled hypertension. Blood pressure has been really high. I think it was related to alcohol withdrawal. I think, at this point, we will continue to monitor this patient closely. His blood pressure is definitely much better controlled. 7. Disposition. If he continues to be restless will send him to the intensive care unit today. cc: Bakari Marshall MD MTDD
[2018-10-19] MEDS: ROCEPHIN 2 GM in NS 50 ML IV SCH (12:24)
[2018-10-19] MEDS: BEER PO PRN ×2 (14:02→21:47)
[2018-10-19] MEDS: GEODON IM SCH (21:34)
[2018-10-19] MEDS: STERILE WATER INJ. ONE (21:47)
[2018-10-20] MEDS: DUONEB (A & A) INH SCH ×6 (03:33→22:51)
[2018-10-20] MEDS: PRILOSEC PO SCH (06:02)
[2018-10-20] MEDS: NS 1,000 ML IV SCH ×3 (06:02→18:31)
[2018-10-20 06:40] LABS: BASO# 0.08 X1000 (0.0-0.2); BASO% 1.2 % (0.0-0.8); EOS# 0.13 X1000 (0.0-0.7); HEMATOCRIT 36.1 % (42.0-52.0); HEMOGLOBIN 12.2 g/dL (14.0-18.0); IMM GRAN# 0.01 X1000 (0.0-0.04); IMM GRAN% 0.2 % (0.0-0.5); LYMPH# 1.55 X1000 (1.2-3.4); LYMPH% 24.1 % (20.5-51.1); MCH 29.6 PG (27-31); MCHC 33.8 g/dL (33-37); MCV 87.6 FL (81-99); MONO# 0.64 X1000 (0.11-0.59); MPV 8.5 FL (7.4-10.4); NEUT# 4.01 X1000 (1.4-6.5); NEUT% 62.5 % (42.2-75.2); PLT 627 X1000 (130-400); RBC 4.12 XMIL (4.7-6.1); RDW 13.7 % (11.5-14.5); WBC 6.42 X1000 (4.8-10.8)
[2018-10-20] MEDS: MUCOMYST 20% INH SCH ×2 (07:44→19:26)
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
[2018-10-20] MEDS: NORVASC PO SCH ×2 (10:24→21:00)
[2018-10-20] MEDS: TUMS EXTRA STRENGTH PO SCH ×2 (10:24→21:00)
[2018-10-20] MEDS: VITAMIN B-1 PO SCH (10:24)
[2018-10-20] MEDS: PRINIVIL PO SCH ×2 (10:36→21:00)
[2018-10-20] MEDS: NICODERM PATCH TD PRN (10:48)
[2018-10-20] MEDS ORDERED: STERILE WATER INJ. ONE (11:13)
[2018-10-20] MEDS: ROCEPHIN 2 GM in NS 50 ML IV SCH (11:17)
[2018-10-20] MEDS: GEODON IM SCH (21:00)
[2018-10-20] MEDS: STERILE WATER INJ. ONE (21:00)
--- NOTE | 2018-10-20 22:53 | PROGRESS NOTE ---
DATE: 10/20/2018 SUBJECTIVE: Patient has no complaints. PHYSICAL EXAMINATION: Vital Signs: Reviewed. General: He is awake. He is in no current distress. HEENT: Normocephalic. Neck: Supple. CARDIOVASCULAR: Regular rate. Chest: Clear. Abdomen: Soft. Extremities: Moves all extremities. ASSESSMENT: 1. Alcohol withdrawal. 2. Hypokalemia. 3. Hypophosphatemia. 4. Physical deconditioning. 5. Acute delirium. PLAN: We will continue patient in hospital, supportive care. Hopefully can continue to wean and will follow. cc: Oh Lyn MD MTDD
[2018-10-21] MEDS: ATIVAN IV PRN (02:43)
[2018-10-21] MEDS: DUONEB (A & A) INH SCH ×6 (03:57→23:12)
[2018-10-21] MEDS: NS 1,000 ML IV SCH (04:28)
[2018-10-21] MEDS: PRILOSEC PO SCH (06:23)
[2018-10-21] MEDS: VITAMIN B-1 PO SCH (08:10)
[2018-10-21] MEDS: PRINIVIL PO SCH ×2 (08:10→20:03)
[2018-10-21] MEDS: NORVASC PO SCH ×2 (08:10→20:03)
[2018-10-21] MEDS: TUMS EXTRA STRENGTH PO SCH ×2 (08:11→20:02)
[2018-10-21] MEDS: BEER PO PRN ×2 (09:00→17:07)
[2018-10-21] MEDS ORDERED: STERILE WATER INJ. ONE (10:08)
[2018-10-21] MEDS: NICODERM PATCH TD PRN (17:13)
--- NOTE | 2018-10-21 19:44 | PROGRESS NOTE ---
DATE: 10/21/2018 SUBJECTIVE: Patient states that he is feeling a little bit better this morning. He denies any chest pains or palpitations. PHYSICAL EXAMINATION: Vital signs: Temperature 97.1 degrees, pulse 81, respiratory rate 18, BP 153/62. General: Patient is awake, much more alert, appears to be more oriented than he has in the past few days. He is able to answer questions a little bit more appropriately. HEENT: Normocephalic. Neck: Supple. Cardiovascular: Regular rate. Chest: Clear, nonlabored, no crackles, no wheezing. Abdomen: Soft, nondistended. Extremities: He has no focal neurological deficits. He has no edema. ASSESSMENT: 1. Acute alcohol withdrawal syndrome. He continues to improve. 2. Right-sided pneumothorax, resolved. 3. Right rib fracture. 4. Hyperkalemia, resolved. 5. Physical deconditioning. 6. Hypertension. PLAN: The patient is doing much better. He has been treated for 7 days with Rocephin. We will stop this. Will also stop his normal saline as his mental status appears to be improved. Hopefully, can continue to keep up with oral intake and will not have to restart. We will attempt to discontinue his restraints as he is more alert and oriented. cc: Oh Lyn MD
[2018-10-21] MEDS: GEODON IM SCH (20:03)
[2018-10-22] MEDS: ATIVAN IV PRN (01:25)
[2018-10-22] MEDS: BEER PO PRN ×3 (01:33→18:28)
[2018-10-22] MEDS: DUONEB (A & A) INH SCH ×6 (03:21→23:43)
[2018-10-22] MEDS: PRILOSEC PO SCH (06:27)
[2018-10-22] MEDS: NORVASC PO SCH ×2 (08:41→20:27)
[2018-10-22] MEDS: TUMS EXTRA STRENGTH PO SCH ×2 (08:41→20:28)
[2018-10-22] MEDS: PRINIVIL PO SCH ×2 (08:41→20:28)
[2018-10-22] MEDS: VITAMIN B-1 PO SCH (08:41)
[2018-10-22] MEDS ORDERED: STERILE WATER INJ. ONE (10:35)
[2018-10-22] MEDS: ATIVAN IM PRN ×2 (16:03→20:28)
[2018-10-22] MEDS: GEODON IM SCH (20:15)
--- NOTE | 2018-10-22 23:26 | PROGRESS NOTE ---
DATE: 10/22/2018 SUBJECTIVE: Patient has no complaints. He has actually been able to stay out of restraints all day. PHYSICAL EXAMINATION: Vital Signs: Temperature 97.9 degrees, pulse 80, respiratory rate 18, BP 145/69. General: Patient is awake, currently in no respiratory distress. HEENT: Normocephalic. Neck: Supple. Cardiovascular: Regular rate. Chest: Clear. Abdomen: Soft. Extremities: Moves all extremities. Neurologic: Patient is awake, alert, oriented. He is exhibiting generalized weakness. He is much more oriented today than he has been in the past. ASSESSMENT: 1. Alcohol withdrawal. The patient currently is receiving beer p.r.n. per Dr. Espinoza. 2. Right-sided pneumothorax secondary to fall and rib fracture. 3. Rib fracture. 4. Hypokalemia, resolved. 5. Hypertension, improved. PLAN: We will continue patient in the hospital. Continue to stay out of restraints as long as safety allows. Hopefully can transition to rehab soon. As he was started on beer, we will continue this to try to prevent him from going into further withdrawal. cc: Oh Lyn MD
[2018-10-23] MEDS: DUONEB (A & A) INH SCH ×6 (04:27→23:27)
[2018-10-23] MEDS: PRILOSEC PO SCH (06:11)
[2018-10-23] MEDS: PRINIVIL PO SCH ×2 (08:18→22:35)
[2018-10-23] MEDS: VITAMIN B-1 PO SCH (08:18)
[2018-10-23] MEDS: ATIVAN IM PRN (08:19)
[2018-10-23] MEDS: TUMS EXTRA STRENGTH PO SCH ×2 (08:19→22:35)
[2018-10-23] MEDS: NORVASC PO SCH ×2 (08:19→22:31)
[2018-10-23] MEDS ORDERED: STERILE WATER INJ. ONE (10:11)
[2018-10-23] MEDS: LIBRIUM PO SCH (16:56)
[2018-10-23] MEDS: GEODON IM SCH (22:30)
--- NOTE | 2018-10-24 00:45 | PROGRESS NOTE ---
DATE: 10/23/2018 SUBJECTIVE: Patient has no complaints. He is awake, alert, but easily distracted and confused. PHYSICAL EXAMINATION: Vital Signs: Temperature 97.6 degrees, pulse 87, respiratory 18, BP 160/89. General: Patient is awake, alert, currently in no distress. HEENT: Normocephalic. Neck: Supple. Cardiovascular: Regular rate. Chest: Clear. Abdomen: Soft. Extremities: Moves all extremities. ASSESSMENT: 1. Adult failure to thrive. 2. Alcohol dependence and withdrawal. The patient currently is receiving beer as needed. We will begin weaning this, hopefully totally off over the next few days. 3. Right-sided pneumothorax, resolved. 4. Hyperkalemia. 5. Physical deconditioning. We will transition patient to rehab when bed is available. Continue to wean his alcohol and we will follow. cc: Oh Lyn MD
[2018-10-24] MEDS: DUONEB (A & A) INH SCH ×6 (03:19→23:07)
[2018-10-24] MEDS: PRILOSEC PO SCH (06:10)
[2018-10-24] MEDS: LIBRIUM PO SCH ×3 (08:32→17:51)
[2018-10-24] MEDS: VITAMIN B-1 PO SCH (08:32)
[2018-10-24] MEDS: NORVASC PO SCH ×2 (08:32→20:43)
[2018-10-24] MEDS: PRINIVIL PO SCH ×2 (08:33→20:43)
[2018-10-24] MEDS: TUMS EXTRA STRENGTH PO SCH ×2 (08:33→20:43)
[2018-10-24] MEDS: BENADRYL IM PRN (10:07)
[2018-10-24] MEDS ORDERED: STERILE WATER INJ. ONE (10:22)
[2018-10-24] MEDS: ATIVAN IM PRN ×2 (13:54→17:39)
--- NOTE | 2018-10-24 16:12 | PROGRESS NOTE ---
DATE: 10/24/2018 SUBJECTIVE: Patient overall is improved. He is much more awake although he is still very fatigued having difficulty getting out of bed, needs assistance. PHYSICAL EXAMINATION: Vital Signs: Temperature 97.4 degrees, pulse 96, respiratory rate 20, BP 129/70. General: Patient is awake. He is alert. He is still disoriented at times. HEENT: Normocephalic. Neck: Supple. Cardiovascular: Regular rate. Chest: Clear, nonlabored. Abdomen: Soft, nondistended. Extremities: Moves all extremities. Neurologic: No focal neurological changes. Still does not follow commands well. ASSESSMENT: 1. Acute alcohol withdrawal syndrome. Overall improved. We will continue to wean. Currently is on Librium 3 times a day. 2. Agitation, also improving. 3. Right-sided pneumothorax, resolved. 4. Hypokalemia, stable. 5. Hypertension. Blood pressures are much better than initial admission. We will continue to follow. PLAN: Continue to follow his current course. Continue physical therapy. Hopefully to rehab when bed is available. cc: Oh Lyn MD
[2018-10-24] MEDS: GEODON IM SCH (20:42)
[2018-10-25] MEDS: DUONEB (A & A) INH SCH ×6 (03:08→23:00)
[2018-10-25] MEDS: PRILOSEC PO SCH (06:03)
[2018-10-25] MEDS: TUMS EXTRA STRENGTH PO SCH ×2 (08:35→20:20)
[2018-10-25] MEDS: VITAMIN B-1 PO SCH (08:35)
[2018-10-25] MEDS: NORVASC PO SCH ×2 (08:35→20:19)
[2018-10-25] MEDS: LIBRIUM PO SCH ×2 (08:35→20:19)
[2018-10-25] MEDS: PRINIVIL PO SCH ×2 (08:35→20:20)
[2018-10-25] MEDS: COREG PO SCH ×2 (10:11→20:19)
--- NOTE | 2018-10-25 11:33 | PROGRESS NOTE ---
DATE: 10/25/2018 SUBJECTIVE: Patient is much improved. He is more awake, alert. OBJECTIVE: Vital signs: Temperature 97.8 degrees, pulse 103, respiratory 18, blood pressure 158/85. General: Patient is awake, alert, currently in no distress. HEENT: Normocephalic. Neck: Supple. Cardiovascular: Regular rate. No murmurs. Chest: Clear, nonlabored. Abdomen: Soft. Extremities: Moves all extremities. Neurologic: No changes. ASSESSMENT: 1. Chronic alcoholism with acute alcohol withdrawal, improved. 2. Metabolic encephalopathy secondary to alcoholism, improving. 3. Right-sided pneumothorax, resolved. 4. Adult failure to thrive. 5. Hypertension, stable. PLAN: Continue patient in the hospital. Continue to wean Librium. Hopefully he can transition to rehab soon. cc: Oh Lyn MD
[2018-10-25] MEDS: ATIVAN IM PRN (15:09)
[2018-10-25] MEDS: GEODON IM SCH (20:19)
[2018-10-26] MEDS: DUONEB (A & A) INH SCH ×6 (03:10→22:51)
[2018-10-26] MEDS: PRILOSEC PO SCH (06:00)
[2018-10-26] MEDS: COREG PO SCH ×2 (09:43→19:59)
[2018-10-26] MEDS: PRINIVIL PO SCH ×2 (09:44→20:00)
[2018-10-26] MEDS: NORVASC PO SCH ×2 (09:44→20:00)
[2018-10-26] MEDS: TUMS EXTRA STRENGTH PO SCH ×2 (09:45→23:07)
[2018-10-26] MEDS: LIBRIUM PO SCH (09:45)
[2018-10-26] MEDS: VITAMIN B-1 PO SCH (09:45)
[2018-10-26] MEDS: ATIVAN IM PRN (11:56)
--- NOTE | 2018-10-26 14:59 | PROGRESS NOTE ---
DATE: 10/26/2018 SUBJECTIVE: Patient has no new complaints. Staff notes he is staying more awake and alert. PHYSICAL EXAMINATION: Vital Signs: Temperature 97.8, pulse 82, respiratory 20, BP 132/69. General: Patient is awake. He is in no current respiratory distress. HEENT: Normocephalic. Neck: Supple. Cardiovascular: Regular rate. No murmurs. Chest: Clear, nonlabored. Abdomen: Soft, nondistended. Extremities: Moves all extremities, although generalized weakness. ASSESSMENT: 1. Adult failure to thrive with generalized weakness requiring maximum assist. 2. Alcohol withdrawal and stabilization. 3. Right-sided pneumothorax, resolved. 4. Hypertension, improved. PLAN: We will continue to wean patient's Librium today, giving him his last dose. He has been off of alcohol for several days. Hopefully he can transition to rehabilitation in the a.m. cc: Oh Lyn MD
[2018-10-26] MEDS ORDERED: STERILE WATER INJ. ONE (19:54)
[2018-10-26] MEDS: BENADRYL IM PRN (19:59)
[2018-10-26] MEDS: GEODON IM SCH (19:59)
[2018-10-27] MEDS: ATIVAN IM PRN ×2 (03:17→14:03)
[2018-10-27] MEDS: DUONEB (A & A) INH SCH ×3 (03:31→11:43)
[2018-10-27] MEDS: PRILOSEC PO SCH (06:04)
[2018-10-27] MEDS: VITAMIN B-1 PO SCH (08:28)
[2018-10-27] MEDS: NORVASC PO SCH (08:28)
[2018-10-27] MEDS: COREG PO SCH (08:28)
[2018-10-27] MEDS: PRINIVIL PO SCH (08:28)
[2018-10-27] MEDS: TUMS EXTRA STRENGTH PO SCH (08:28)
[2018-10-27] MEDS ORDERED: LIBRIUM PO SCH (09:00)
[2018-10-27] MEDS ORDERED: STERILE WATER INJ. ONE (09:38)
[2018-10-27] MEDS ORDERED: MIRALAX PO ONE (12:00)
[2018-10-27] MEDS: BENADRYL IM PRN (14:03)
--- NOTE | 2018-10-27 14:42 | DISCHARGE SUMMARY ---
ADMISSION DATE: 10/10/2018 DISCHARGE DATE: 10/27/2018 ADMITTING DIAGNOSES: 1. Right-sided pneumothorax. 2. Eighth rib fracture, status post fall. 3. History of hypertension. 4. Alcohol intoxication in a patient with chronic alcohol abuse. 5. Tobacco use and abuse. 6. Mild rhabdomyolysis. DISCHARGE DIAGNOSES: 1. Adult failure to thrive with generalized weakness requiring maximum assistance. 2. Alcohol withdrawal and stabilization. 3. Right-sided pneumothorax, resolved. 4. Hypertension, improved. 5. Infiltrates treated as pneumonia with 7 days of Rocephin. CONSULTATIONS: Dr. Ramey for right pneumothorax. SURGERIES AND PROCEDURES: In the emergency department, a pneumothorax catheter was placed in the right chest, and that was placed on 10/10/2018, and it was discontinued by Dr. Ramey on 10/12/2018. HOSPITAL COURSE: On 10/10/2018, Mr. Jose Armando Mchugh, a 68-year-old male with a history of hypertension and alcohol abuse, presented to the emergency department at [place] after a fall from a standing positive and was unable to get up. He had slurred speech, screaming and cursing, incontinent of urine en route. He was found to have an eighth rib fracture on the right along with the right-sided pneumothorax on chest x-ray. There was an 8-Norwegian chest tube placed to negative 20 continuous suction with reexpansion of the right chest pneumothorax. It was placed on 10/10/2018 and discontinued on 10/12/2018. He was followed by Dr. Ramey at that time. He was also treated for alcohol abuse and risk for withdrawals. On presentation, he was starting to have some tremors. He was transferred to the ICU. He was started on a Librium taper, Bentyl as needed for stomach cramps. He was found to have some mild rhabdomyolysis which resolved during his stay after fluid hydration. The nausea and vomiting he had on presentation also resolved. Rhabdomyolysis resolved. He was educated on tobacco abuse. He did have a chest CT which showed some questionable infiltrates and was initiated on IV antibiotics of ceftriaxone 2 mg IV q.24 hours along with azithromycin and at that time had a normal white blood cell count of 5000. During his stay, he did fully go into alcohol withdrawals. He had hypokalemia that was treated and resolved. I believe since he was a penitentiary alcoholic, they considered starting the patient on some beers to help with the withdrawal symptoms. His blood pressure was somewhat uncontrolled and hypertensive secondary to his alcohol withdrawals. He was continued on amlodipine and lisinopril which seemed to have improved his blood pressure. During his stay, he did have some physical deconditioning and became very weak. electrical worker had to be consulted. His alcohol withdrawal was eventually just treated with Geodon. Physical Therapy followed him. Nutritional support was required during his stay including Clinimix and lipids. He did require restraints during his stay because of severe agitation. Those were discontinued a while back. I believe he was transferred out of the ICU on 10/18/2018. Then through the night, he became restless once again, and on 10/19/2018, they considered returning him to the ICU. Rocephin was stopped for the possible pneumonia or the infiltrates that he showed even though his white count was normal. He was initiated on Librium 3 times a day, and the beer was stopped. He tolerated this transition well. Vitals remained stable, and he was deemed appropriate for discharge to rehabilitation to [facility]. It looks like he is going to [facility]. DISCHARGE VITAL SIGNS: Temperature is 98.3, heart rate 90, respiratory rate 19, blood pressure 120/66, O2 saturation 100% on room air. DISCHARGE LAB DATA: White blood cells 6000, hemoglobin 12, hematocrit 36, platelet count 627. No recent chemistry. PERTINENT IMAGING: On 10/09/2018, he had a head CT with no hemorrhage, chronic microvascular ischemic changes, left-sided sinusitis. Chest x-ray with rib with right-sided pneumothorax with a right eighth rib fracture. Another chest x-ray on 10/10/2018 with decrease in size of the pneumothorax after chest tube placed. Chest x-ray on 10/11/2018 showed no pneumo, and the chest tube was in place. On 10/12/2018, same. On 10/13/2018, he had a chest x-ray after chest tube was removed, and it showed worsening atelectasis versus infiltrate in the right lower lobe. He had a CT which showed small pleural effusions with basilar atelectasis and small underlying infiltrates. A chest x-ray, last one, was on 10/13/2018, and everything improved. EKG on 10/09/2018 showed normal sinus rhythm, rate 88, QTC was 503. DISCHARGE MEDICATIONS: 1. Librium 25 mg p.o. t.i.d. 2. Nicotine 21 mg transdermal daily. 3. Ramer 1 tab p.o. t.i.d. p.r.n. 4. Norvasc 5 mg p.o. twice daily. 5. Lisinopril 20 mg p.o. twice daily. 6. Vitamin B1 or thiamine 100 mg p.o. daily. DISCHARGE DIET: Regular. DISCHARGE ACTIVITY: No driving while taking pain medication. Do physical therapy. DISCHARGE FOLLOWUP: None. DISCHARGE INSTRUCTIONS: If your condition changes, contact your physician and/or return to the emergency department. Changes may include but are not limited to shortness of breath, increased fatigue, excessive bleeding, unexplained weight loss or gain, unimaginable pain, signs or symptoms of infection. DISCHARGE DISPOSITION: [facility]. Dictated by ROMAIN Howe for Bakari Marshall MD Addendum: Patient seen and examined by myself. Agree with ROMAIN note. It reflects my assessment and plan. Patient is being discharged from hospital in stable condition. cc: ROMAIN Howe MD [facility]
[2018-10-27 15:17] VITALS: BP 123/64
== END 2018-10-27 15:42 | DRG 199 ==
LOC: P.MEDSURG 22:33 → P.ED 22:33 → OBSVTOIN 10-10 05:57 → SUATTDRO 10-10 05:57 → P.ICU 10-10 14:01 → P.MEDSURG 10-18 10:20
PROVIDERS: ATTEND Internal Medicine
CPT/HCPCS: 51798; 70450; 71010; 71045; 71101; 71250; 80048; 80053; 80069; 80104; 80301; 80305; 80307; 80320; 82055; 82550; 82553; 83690; 84100; 84484; 85025; 85027; 87070; 87205; 93005; 94640; 94761; 94799; 96365; 96366; 96367; 96375; 97110; 97163; 97530; 99285; 99291; A9270; G0431; G0434; G0477; G0480; G6040; J0456; J0690; J0696; J1170; J1200; J2060; J2405; J3411; J3475; J3480; J3486; J7030; J7040; J7050